=== PATIENT | male | born 1990 | race Caucasian/White ===

== ENCOUNTER 2017-02-26 07:46 | Emergency (ER) | payer MEDICAID, SELFPAY ==
[~2017-02-26] VITALS: Ht 193 cm; Wt 100.1 kg
[2017-02-26 07:55] VITALS: BP 128/75
[2017-02-26] MEDS ORDERED: AZITHROMYCIN 500 MG TABLET PO ONE (08:30)
[2017-02-26] MEDS ORDERED: CEFTRIAXONE 250 MG IM ONE (08:30)
[2017-02-26] MEDS ORDERED: AZITHROMYCIN 250 MG TABLET ONE (08:56)
[2017-02-26] MEDS ORDERED: CEFTRIAXONE 250 MG ONE (08:56)
[2017-02-26 09:00] LABS: PATH.CAST-FLAG NOT PRESENT; SPERM-FLAG NOT PRESENT; SRC-FLAG NOT PRESENT; XTAL-FLAG NOT PRESENT; YLC-FLAG NOT PRESENT
== END 2017-02-26 09:28 | disposition home or self-care (01) ==
LOC: ED 09:22
DX: N48.21 Abscess of corpus cavernosum and penis (principal)
CPT/HCPCS: 81001; 87086; 96372; 99284; J0696; 87491; 87591

== ENCOUNTER 2018-07-09 13:24 | Emergency (ER) | payer MEDICAID, OTHER ==
[~2018-07-09] VITALS: Ht 193 cm; Wt 103.0 kg
[2018-07-09 15:56] LABS: BASOPHILS # (AUTO) 0.05 x10^3/uL (0-0.1); BASOPHILS % (AUTO) 1 % (0-1); EOSINOPHILS # (AUTO) 0.47 x10^3/uL (0-0.4); EOSINOPHILS % (AUTO) 7 % (1-7); LYMPHOCYTES # (AUTO) 1.53 x10^3/uL (1-3.4); LYMPHOCYTES % (AUTO) 23 % (22-44); MD NO; MEAN CORPUSCULAR HEMOGLOBIN 30.5 pg (27.5-34.5); MEAN CORPUSCULAR VOLUME 92.6 fL (81-97); MEAN PLATELET VOLUME 7.6 fL (7.4-10.4); MONOCYTES % (AUTO) 8 % (2-9); NEUTROPHILS # (AUTO) 4.03 x10^3/uL (1.8-6.8); NEUTROPHILS % (AUTO) 61 % (42-75); PLATELET COUNT 351 x10^3/uL (130-400); RED BLOOD COUNT 4.46 x10^6/uL (4.38-5.82); RED CELL DISTRIBUTION WIDTH 12.3 % (9.4-14.8)
[2018-07-09 16:06] LABS: ALBUMIN 3.4 g/dL (3.4-5.0); ANION GAP 5 mmol/L (5-15); CHLORIDE 107 mmol/L (98-107); CREATININE 0.97 mg/dL (0.7-1.3)
[2018-07-09 16:09] LABS: TROPONIN I < 0.015 ng/mL (0.000-0.045)
[2018-07-09 16:16] VITALS: BP 126/72
== END 2018-07-09 17:36 | disposition home or self-care (01) ==
LOC: ED 15:29
DX: L03.115 Cellulitis of right lower limb (principal); L03.116 Cellulitis of left lower limb; R60.0 Localized edema
CPT/HCPCS: 36415; 71045; 80048; 82040; 83605; 83880; 84484; 85025; 87040; 93005; 99285

== ENCOUNTER 2021-06-21 12:54 | Emergency (ER) | payer MEDICAID ==
[~2021-06-21] VITALS: Ht 193 cm; Wt 108.2 kg
[~2021-06-21 12:54] MED LIST: BUPR1FIL3 PO
[2021-06-21 13:06] VITALS: BP 114/87
--- NOTE | 2021-06-21 16:46 | NUR ---
[id number]
--- NOTE | 2021-06-21 17:28 | NUR ---
[id number]
--- NOTE | 2021-06-21 19:00 | NUR ---
pt called to room from lobby
--- NOTE | 2021-06-21 19:02 | NUR ---
not in lobby
== END 2021-06-21 19:03 | disposition left against medical advice (07) ==
LOC: ED 13:44
DX: R05 Cough (principal); Z20.822 Contact with and (suspected) exposure to COVID-19
CPT/HCPCS: 71045; 99284; U0003; U0005